=== PATIENT | male | born 1955 | race Caucasian/White ===

== ENCOUNTER 2017-08-07 19:02 | Emergency (ER) | payer MEDICARE ==
[2017-08-07] MEDS ORDERED: Ketorolac INJ* 30 MG/ML 1 ML VIAL IV PUSH ONE (20:19)
--- NOTE | 2017-08-07 20:45 | RAD ---
INDICATION: Cough COMPARISON: December 17, 2013 TECHNIQUE: An AP portable view obtained at 2030 hours is submitted. FINDINGS: Bones/Soft Tissues: There are no acute bony findings. There is prior cervical fusion Cardiomediastinal: The cardiomediastinal silhouette is normal. Lungs: There are no infiltrates. Pleura: There are no pleural effusions. Other: None IMPRESSION: NO ACTIVE DISEASE.
[2017-08-07 21:06] LABS: Hematocrit 41 % (42-52); Mean Corpuscular HGB Conc 34 g/dl (31-36); Mean Corpuscular Hemoglobin 29 pg (27-31); Mean Corpuscular Volume 86 fL (80-94); Mean Platelet Volume 8 um3 (7.4-10.4); Red Blood Count 4.82 10^6/ul (4.0-5.4); Red Cell Distribution Width 13 % (10.5-15); White Blood Count 10.9 10^3/ul (3.5-10.8)
[2017-08-07 21:23] LABS: Albumin 4.2 g/dL (3.2-5.2); BUN/Creatinine Ratio 16.5 (8-20); Calcium 9.6 mg/dL (8.6-10.3); EGFR African American 109.3 (>60); Globulin 3.5 g/dL (2-4); Total Bilirubin 0.4 mg/dL (0.2-1.0); Total Protein 7.7 g/dL (6.4-8.9)
[2017-08-07] MEDS ORDERED: Iohexol 300* (CONTRAST) 10 ML SDV IV ONE (21:36)
[2017-08-07 21:38] LABS: Potassium 4.1 mmol/L (3.5-5.0)
--- NOTE | 2017-08-07 21:55 | RAD ---
INDICATION: Sore throat with swelling. Evaluate for retropharyngeal abscess. COMPARISON: MRI cervical spine March 18, 2015 TECHNIQUE: Axial source images were acquired following the intravenous administration of 50 mL Omnipaque 300 Coronal and sagittal reconstructed images were acquired. FINDINGS: Brain and skull base: There are no CT abnormalities of the visualized brain or skull base. The mastoid air cells are well aerated. Salivary glands: The major salivary glands appear normal. Paranasal sinuses: There is opacification the right maxillary antrum and there is opacification of multiple ethmoid air cells. There is focal mucosal thickening in the floor the left maxillary antrum. The mastoids are well aerated. Nasopharynx: The nasopharynx and nasal cavity appear normal. Oropharynx: The oral, and oropharynx appear normal. Larynx: There are no laryngeal abnormalities. Thyroid: The thyroid appears normal. Lymph nodes: There is no lymphadenopathy by size criteria. Trachea/esophagus: There are no abnormalities of the trachea or visualized esophagus. The visualized lung apices are clear.. Vessels:The vessels appear normal. Bones and soft tissues: There is anterior cervical spinal fusion from C5 through C7. Other: The lung apices are clear. IMPRESSION: NO CT EVIDENCE OF RETROPHARYNGEAL ABSCESS. SINUSITIS. PRIOR CERVICAL FUSION.
[2017-08-07] MEDS ORDERED: cefTRIAXone(*) 1 GM in NS 0.9% 50 ML* 50 ML IVPB ONE (22:08)
[2017-08-07] MEDS ORDERED: Diazepam TAB(*) 5 MG PO ONE (22:11)
[2017-08-07 23:36] VITALS: BP 150/89
--- NOTE | 2017-08-08 03:42 | ED ---
Nasrin Lemus Edward, scribed for Flores Hernandez MD on 08/07/17 at 1939 . Neck Pain - HPI Summary HPI Summary: 62 y/o male presents to the ED c/o neck pain that started as neck stiffness several days ago. The pain is located at the R side of the back of his neck. Pt has difficulty swallowing with the pain. The pain is described as a tightness that is aggravated when the pt turns his head to the L; it was rated 8/10 in severity at triage. Pt's was recently sick. Associated sx: SOL, sinus congestion, burning with urination (mild). Pt states that yesterday he was looking straight ahead but felt like he was looking to the R. PMHx chronic SOL, back and neck problems, asthma, anxiety. - History of Current Complaint Chief Complaint: EDHeadache Stated Complaint: NECK PAIN/SORE THROAT Hx Obtained From: Patient Timing: Lasting Days Onset/Duration: Started days ago Severity Currently: Severe Pain Intensity: 8 Pain Scale Used: 0-10 Numeric Location: Discrete At: - back of neck on the R side Character: Other: - tightness Aggravating Factors: Movement - turning his head to the L, swallowing Alleviating Factors: Nothing Associated Signs & Symptoms: Positive: Nuchal Rigity, Headache - Allergies/Home Medications Allergies/Adverse Reactions: Allergies Allergy/AdvReac Type Severity Reaction Status Date / Time No Known Allergies Allergy Verified 08/07/17 19:18 PMH/Surg Hx/FS Hx/Imm Hx Previously Healthy: No Endocrine/Hematology History: Denies: Hx Diabetes, Hx Anemia Cardiovascular History: Reports: Hx Hypercholesterolemia Denies: Hx Hypertension, Hx Pacemaker/ICD Respiratory History: Reports: Hx Asthma - 15 yrs, Hx Pneumonia, Hx Sleep Apnea - MILD -MOD NO MACHINE GI History: Reports: Hx Gastroesophageal Reflux Disease, Hx Irritable Bowel, Hx Ulcer History: Reports: Hx Benign Prostatic Hyperplasia - seeing urologist, Other Problems/Disorders - BPH Musculoskeletal History: Reports: Hx Arthritis, Hx Back Problems - since 1979, Other Musculoskeletal History - back pain Sensory History: Reports: Hx Cataracts - SURGERY Denies: Hx Contacts or Glasses - DOESN'T WEAR, Hx Hearing Aid Opthamlomology History: Reports: Hx Cataracts - SURGERY Denies: Hx Contacts or Glasses - DOESN'T WEAR Neurological History: Reports: Hx Headaches, Hx Migraine, Hx Spinal Cord Injury Psychiatric History: Reports: Hx Anxiety, Hx Depression Denies: Hx Panic Disorder - Cancer History Cancer Type, Location and Year: Basal Cell Carcinoma on back, left arm, hands - Surgical History Surgery Procedure, Year, and Place: CSP FUSION , LSP FUSION,. CHEMOTHERAPY INJECTION . BACK SURGERY REMOVED SCAR TISSUE AND RELIEVED PRESSURE FROM SCIATICA Hx Anesthesia Reactions: No Infectious Disease History: No Infectious Disease History: Denies: Hx Clostridium Difficile, Hx Hepatitis, Hx Human Immunodeficiency Virus (HIV), Hx of Known/Suspected MRSA, Traveled Outside the [place] in Last 30 Days - Social History Alcohol Use: None Hx Substance Use: No Substance Use Type: Reports: None Substance Use Comment - Amount & Last Used: oxycodone Hx Tobacco Use: No Smoking Status (MU): Never Smoked Tobacco Review of Systems Constitutional: Negative Eyes: Negative ENT: Other - sinus congestion Positive: Sore Throat Cardiovascular: Negative Positive: Shortness Of Breath Gastrointestinal: Negative Positive: burning - mild Positive: Arthralgia - neck pain Skin: Negative Positive: Headache Psychological: Normal All Other Systems Reviewed And Are Negative: No Physical Exam - Summary Physical Exam Summary: Appearance: Alert, conversive, nontoxic appearing Skin: Warm, dry, no mottling, no rashes, no contusions HEENT: EOMI, PERRL, slightly dry mucous membranes Neck: No masses on the neck, supple Respiratory: Clear to auscultation, breath sounds present, no rales, no rhonchi , no wheezes Cardiovascular: RRR, pulses are symmetrical in both lower and upper extremities Abdomen: Soft, non-tender Bowel Sounds: Present Musculoskeletal: No CVA tenderness, no obvious deformity, moving all extremities in a grossly normal manner. The pt has paraspinal tenderness at the right. Limited ROM of the neck. Neurological: A&Ox3, CN II-XII Intact, moving all extremities symmetrically Psychiatric: The pt is slightly anxious. Triage Information Reviewed: Yes Vital Signs On Initial Exam: Initial Vitals Temp Pulse Resp BP Pulse Ox 98.8 F 105 20 156/97 99 08/07/17 19:12 08/07/17 19:12 08/07/17 19:12 08/07/17 19:12 08/07/17 19:12 Vital Signs Reviewed: Yes Diagnostics - Vital Signs Vital Signs Temp Pulse Resp BP Pulse Ox 08/07/17 19:12 98.8 F 105 20 156/97 99 - Laboratory Lab Results: Lab Results 08/07/17 08/07/17 08/07/17 Range/Units 20:40 20:40 21:11 WBC 10.9 H (3.5-10.8) 10^3/ul RBC 4.82 (4.0-5.4) 10^6/ul Hgb 14.0 (14.0-18.0) g/dl Hct 41 L (42-52) % MCV 86 (80-94) fL MCH 29 (27-31) pg MCHC 34 (31-36) g/dl RDW 13 (10.5-15) % Plt Count 237 (150-450) 10^3/ul MPV 8 (7.4-10.4) um3 Neut % (Auto) 72.9 (38-83) % Lymph % (Auto) 15.8 L (25-47) % [place] % (Auto) 10.4 H (1-9) % Eos % (Auto) 0.5 (0-6) % Baso % (Auto) 0.4 (0-2) % Absolute Neuts (auto) 8.0 H (1.5-7.7) 10^3/ul Absolute Lymphs (auto) 1.7 (1.0-4.8) 10^3/ul Absolute Monos (auto) 1.1 H (0-0.8) 10^3/ul Absolute Eos (auto) 0 (0-0.6) 10^3/ul Absolute Basos (auto) 0 (0-0.2) 10^3/ul Absolute Nucleated RBC 0 10^3/ul Nucleated RBC % 0 Sodium 134 (133-145) mmol/L Potassium 4.1 (3.5-5.0) mmol/L Chloride 99 L (101-111) mmol/L Carbon Dioxide 30 (22-32) mmol/L Anion Gap 5 (2-11) mmol/L BUN 15 (6-24) mg/dL Creatinine 0.91 (0.67-1.17) mg/dL Est GFR ( Amer) 109.3 (>60) Est GFR (Non-Af Amer) 85.0 (>60) BUN/Creatinine Ratio 16.5 (8-20) Glucose 100 (70-100) mg/dL Calcium 9.6 (8.6-10.3) mg/dL Total Bilirubin 0.40 (0.2-1.0) mg/dL AST 20 (13-39) U/L ALT 31 (7-52) U/L Alkaline Phosphatase 85 (34-104) U/L Total Protein 7.7 (6.4-8.9) g/dL Albumin 4.2 (3.2-5.2) g/dL Globulin 3.5 (2-4) g/dL Albumin/Globulin Ratio 1.2 (1-3) Group A Strep Rapid Negative (Negative) Result Diagrams: 08/07/17 20:40 08/07/17 20:40 Lab Statement: Any lab studies that have been ordered have been reviewed, and results considered in the medical decision making process. - Radiology CXR Xray Interpretation: No Acute Changes - NO ACTIVE DISEASE Radiology Interpretation Completed By: Radiologist - ED PHYSICIAN REVIEWS AND AGREES - CT NECK CT CT Interpretation: No Acute Changes - NO CT EVIDENCE OF RETROPHARYNGEAL ABSCESS. SINUSITIS. PRIOR CERVICAL FUSION. CT Interpretation Completed By: Radiologist - ED PHYSICIAN REVIEWS AND AGREES Re-Evaluation - Re-Evaluation 1 Re-Evaluation Time: 22:15 Comment: Discuss test results Neck Course/Dx - Course Assessment/Plan: 62 y/o male presents to the ED c/o neck pain that started as neck stiffness several days ago. The pain is located at the R side of the back of his neck. Pt has difficulty swallowing with the pain. The pain is described as a tightness that is aggravated by the pt turning his head to the L side; it was rated 8/10 in severity at triage. Pt's was recently sick. Associated sx : SOL, sinus congestion, burning with urination (mild). Pt states that yesterday he was looking straight ahead but felt like he was looking to the R. PMHx chronic SOL, back and neck problems, asthma, anxiety. CXR NEGATIVE. NO CT EVIDENCE OF RETROPHARYNGEAL ABSCESS. SINUSITIS. PRIOR CERVICAL FUSION. Rapid strep negative. - Diagnoses Provider Diagnoses: Torticollis, acute, Sinusitis Discharge - Discharge Plan Condition: Stable Disposition: HOME Prescriptions: Amoxicillin PO (*) [Amoxicillin 500 MG CAP*] 500 mg PO TID 10 Days #30 cap Patient Education Materials: Sinusitis (ED), Spasmodic Torticollis (ED) Referrals: Claudia Levi MD [Primary Care Provider] - Additional Instructions: Take the amoxil as instructed. Take your pain medications as previously instructed. return if worse or any new symptoms. Please follow up with your doctor in 1-2 days. The documentation as recorded by the Nasrin coley Edward accurately reflects the service I personally performed and the decisions made by , Flores Hernandez MD.
== END 2017-08-07 23:29 | disposition home or self-care (01) ==
LOC: ED 19:02
DX: J32.9 Chronic sinusitis, unspecified (principal); M43.6 Torticollis; R51 Headache; J02.9 Acute pharyngitis, unspecified
CPT/HCPCS: 36415; 70491; 71010; 80053; 85025; 87651; 96374; 99283; A9270-GY; J0696; J1885; Q9967

== ENCOUNTER → 2019-01-11 17:38 | Emergency (ER) | payer MEDICARE ==
[~2019-01-11 17:38] MED LIST: Albuterol/Ipratropium NEB.SOL* Albuterol 2.5 MG/Ipratropium 0.5 MG 3 ML INH ONE; NS 0.9% 1000 ML** 1,000 ML IV ONE
[2019-01-11 18:24] LABS: Influenza A Molecular NEGATIVE (Negative); Influenza B Molecular NEGATIVE (Negative)
[2019-01-11 20:38] LABS: ABS Basophils 0 10^3/ul (0-0.2); ABS Eosinophils 0 10^3/ul (0-0.6); ABS Lymphocytes 0.4 10^3/ul (1.0-4.8); ABS Monocytes 0.3 10^3/ul (0-0.8); ABS Neutrophils 4.2 10^3/ul (1.5-7.7); ABS Nucleated RBC 0 10^3/ul; Eosinophil % 0 %; Hematocrit 42 % (36-46); Hemoglobin 13.7 g/dL (14.0-18.0); Lymphocyte % 7.6 %; Mean Corpuscular HGB Conc 33 g/dL (31-36); Mean Corpuscular Hemoglobin 28 pg (27-31); Mean Corpuscular Volume 86 fL (80-94); Mean Platelet Volume 7.5 fL (7.4-10.4); Nucleated Red Blood Cells % 0.1; Platelet Count 168 10^3/uL (150-450); Red Blood Count 4.84 10^6 /uL (4.18-5.48); Red Cell Distribution Width 13 % (10.5-15); White Blood Count 4.9 10^3/uL (3.5-10.8)
[2019-01-11 20:54] LABS: Albumin 4.2 g/dL (3.2-5.2); Albumin/Globulin Ratio 1.4 (1-3); Calcium 9.2 mg/dL (8.6-10.3); EGFR African American 81.5 (>60); EGFR Non-African American 67.3 (>60); Globulin 2.9 g/dL (2-4); Potassium 3.8 mmol/L (3.5-5.0); Total Bilirubin 0.5 mg/dL (0.2-1.0); Total Protein 7.1 g/dL (6.4-8.9)
[2019-01-11 21:29] LABS: C Reactive Protein 69.89 mg/L (<8.01)
--- NOTE | 2019-01-11 21:36 | ED ---
HPI Febrile Illness - HPI Summary HPI Summary: This patient is a 63 year old M presenting to [facility] accompanied by his upon referral from his PCP with a chief complaint of chills since 1 day ago. The patient notes that earlier 1 day ago he had an infected tooth abscess removed by his dentist. The patient notes that he had been taking penicillin for the last 10 days. The patient rates the pain 6/10 in severity. Symptoms aggravated by nothing. Symptoms alleviated by nothing. Patient reports myalgias and fever (max 102 degrees F). Patient denies cough or dysuria. Patient has hx in degenerative disk disease and asthma. The patient notes he takes morphine and oxycodone daily that he obtains through the pain clinic. The patient notes that he had similar symptoms following his back surgery that was never diagnosed. - History of Current Complaint Chief Complaint: EDFluSymptoms Time Seen by Provider: 01/11/19 19:51 Hx Obtained From: Patient Onset/Duration: Started Days Ago - 1 day, Atraumatic, Still Present Timing: Constant Temperature: 102 F Initial Severity: Mild Current Severity: Mild Pain Intensity: 5 Pain Scale Used: 0-10 Numeric Aggravating Factors: Nothing Alleviating Factors: Nothing Associated Signs and Symptoms: Chills, Myalgia - Allergy/Home Medications Allergies/Adverse Reactions: Allergies Allergy/AdvReac Type Severity Reaction Status Date / Time No Known Allergies Allergy Verified 01/11/19 17:49 Home Medications: Home Medications Albuterol HFA INHALER* [Ventolin HFA Inhaler*] 2 puff INH Q4H PRN 01/11/19 [ History Confirmed 01/11/19] Fluticasone Propionate [24 Hour Allergy Relief] 2 spray BOTH NARES BID 01/11/19 [History Confirmed 01/11/19] Penicillin V Potassium 500 mg PO TID 01/11/19 [History Confirmed 01/11/19] Riboflavin (Vitamin B2) [Vitamin B-2] 100 mg PO QID 01/11/19 [History Confirmed 01/11/19] PMH/Surg Hx/FS Hx/Imm Hx Endocrine/Hematology History: Denies: Hx Diabetes, Hx Anemia Cardiovascular History: Reports: Hx Hypercholesterolemia Denies: Hx Hypertension, Hx Pacemaker/ICD Respiratory History: Reports: Hx Asthma - 15 yrs, Hx Pneumonia, Hx Sleep Apnea - MILD -MOD NO MACHINE GI History: Reports: Hx Gastroesophageal Reflux Disease, Hx Irritable Bowel, Hx Ulcer History: Reports: Hx Benign Prostatic Hyperplasia - seeing urologist, Other Problems/Disorders - BPH Denies: Hx Renal Disease Musculoskeletal History: Reports: Hx Arthritis, Hx Back Problems - since 1979, Other Musculoskeletal History - back pain Sensory History: Reports: Hx Cataracts - SURGERY Denies: Hx Contacts or Glasses - DOESN'T WEAR, Hx Hearing Aid Opthamlomology History: Reports: Hx Cataracts - SURGERY Denies: Hx Contacts or Glasses - DOESN'T WEAR Neurological History: Reports: Hx Headaches, Hx Migraine, Hx Spinal Cord Injury Psychiatric History: Reports: Hx Anxiety, Hx Depression Denies: Hx Panic Disorder - Cancer History Cancer Type, Location and Year: Basal Cell Carcinoma on back, left arm, hands - Surgical History Surgery Procedure, Year, and Place: CSP FUSION , LSP FUSION,. CHEMOTHERAPY INJECTION . BACK SURGERY REMOVED SCAR TISSUE AND RELIEVED PRESSURE FROM SCIATICA Hx Anesthesia Reactions: No Infectious Disease History: No Infectious Disease History: Denies: Hx Clostridium Difficile, Hx Hepatitis, Hx Human Immunodeficiency Virus (HIV), Hx of Known/Suspected MRSA, Traveled Outside the [place] in Last 30 Days - Family History Known Family History: Negative: Diabetes, Blood Disorder - Social History Alcohol Use: None Hx Substance Use: No Substance Use Type: Reports: None Substance Use Comment - Amount & Last Used: oxycodone Hx Tobacco Use: No Smoking Status (MU): Never Smoked Tobacco Review of Systems Positive: Fever, Chills Negative: Epistaxis Negative: Cough Negative: dysuria Positive: Myalgia All Other Systems Reviewed And Are Negative: Yes Physical Exam - Summary Physical Exam Summary: VITAL SIGNS: Reviewed. GENERAL: Patient is a well-developed and nourished MALE who is lying comfortable in the stretcher. Patient is not in any acute respiratory distress. HEAD AND FACE: No signs of trauma. No ecchymosis, hematomas or skull depressions. No sinus tenderness. EYES: PERRLA, EOMI x 2, No injected conjunctiva, no nystagmus. EARS: Hearing grossly intact. Ear canals and tympanic membranes are within normal limits. MOUTH: Oropharynx within normal limits. Last left lower molar removed. Socket looks good with no signs of infection, no swelling, no pain NECK: Supple, trachea is midline, no adenopathy, no JVD, no carotid bruit, no c- spine tenderness, neck with full ROM. CHEST: Symmetric, no tenderness at palpation LUNGS: Clear to auscultation bilaterally. No wheezing or crackles. CVS: Regular rate and rhythm, S1 and S2 present, no murmurs or gallops appreciated. ABDOMEN: Soft, non-tender. No signs of distention. No rebound no guarding, and no masses palpated. Bowel sounds are normal. EXTREMITIES: FROM in all major joints, no edema, no cyanosis or clubbing. NEURO: Alert and oriented x 3. No acute neurological deficits. Speech is normal and follows commands. SKIN: Dry and warm Triage Information Reviewed: Yes Vital Signs On Initial Exam: Initial Vitals Temp Pulse Resp BP Pulse Ox 98.7 F 111 16 117/81 96 01/11/19 17:39 01/11/19 17:39 01/11/19 17:39 01/11/19 17:39 01/11/19 17:39 Vital Signs Reviewed: Yes Diagnostics - Vital Signs Vital Signs Temp Pulse Resp BP Pulse Ox 01/11/19 20:03 88 112/70 97 01/11/19 20:00 89 96 01/11/19 19:49 85 115/71 97 01/11/19 19:01 98.8 F 90 16 114/69 96 01/11/19 17:39 98.7 F 111 16 117/81 96 - Laboratory Lab Results: Lab Results 01/11/19 01/11/19 01/11/19 Range/Units 18:00 20:28 20:28 WBC 4.9 (3.5-10.8) 10^3/uL RBC 4.84 (4.18-5.48) 10^6 /uL Hgb 13.7 L (14.0-18.0) g/dL Hct 42 (36-46) % MCV 86 (80-94) fL MCH 28 (27-31) pg MCHC 33 (31-36) g/dL RDW 13 (10.5-15) % Plt Count 168 (150-450) 10^3/uL MPV 7.5 (7.4-10.4) fL Neut % (Auto) 86.2 % Lymph % (Auto) 7.6 % Morton % (Auto) 6.0 % Eos % (Auto) 0 % Baso % (Auto) 0.2 % Absolute Neuts (auto) 4.2 (1.5-7.7) 10^3/ul Absolute Lymphs (auto) 0.4 L (1.0-4.8) 10^3/ul Absolute Monos (auto) 0.3 (0-0.8) 10^3/ul Absolute Eos (auto) 0 (0-0.6) 10^3/ul Absolute Basos (auto) 0 (0-0.2) 10^3/ul Absolute Nucleated RBC 0 10^3/ul Nucleated RBC % 0.1 Sodium 138 (135-145) mmol/L Potassium 3.8 (3.5-5.0) mmol/L Chloride 102 (101-111) mmol/L Carbon Dioxide 27 (22-32) mmol/L Anion Gap 9 (2-11) mmol/L BUN 20 (6-24) mg/dL Creatinine 1.11 (0.67-1.17) mg/dL Est GFR ( Amer) 81.5 (>60) Est GFR (Non-Af Amer) 67.3 (>60) BUN/Creatinine Ratio 18.0 (8-20) Glucose 140 H (70-100) mg/dL Lactic Acid (0.5-2.0) mmol/L Calcium 9.2 (8.6-10.3) mg/dL Total Bilirubin 0.50 (0.2-1.0) mg/dL AST 36 (13-39) U/L ALT 47 (7-52) U/L Alkaline Phosphatase 81 (34-104) U/L C-Reactive Protein Pending Total Protein 7.1 (6.4-8.9) g/dL Albumin 4.2 (3.2-5.2) g/dL Globulin 2.9 (2-4) g/dL Albumin/Globulin Ratio 1.4 (1-3) Influenza A (Rapid) Negative (Negative) Influenza B (Rapid) Negative (Negative) 01/11/19 Range/Units 20:28 WBC (3.5-10.8) 10^3/uL RBC (4.18-5.48) 10^6 /uL Hgb (14.0-18.0) g/dL Hct (36-46) % MCV (80-94) fL MCH (27-31) pg MCHC (31-36) g/dL RDW (10.5-15) % Plt Count (150-450) 10^3/uL MPV (7.4-10.4) fL Neut % (Auto) % Lymph % (Auto) % Morton % (Auto) % Eos % (Auto) % Baso % (Auto) % Absolute Neuts (auto) (1.5-7.7) 10^3/ul Absolute Lymphs (auto) (1.0-4.8) 10^3/ul Absolute Monos (auto) (0-0.8) 10^3/ul Absolute Eos (auto) (0-0.6) 10^3/ul Absolute Basos (auto) (0-0.2) 10^3/ul Absolute Nucleated RBC 10^3/ul Nucleated RBC % Sodium (135-145) mmol/L Potassium (3.5-5.0) mmol/L Chloride (101-111) mmol/L Carbon Dioxide (22-32) mmol/L Anion Gap (2-11) mmol/L BUN (6-24) mg/dL Creatinine (0.67-1.17) mg/dL Est GFR ( Amer) (>60) Est GFR (Non-Af Amer) (>60) BUN/Creatinine Ratio (8-20) Glucose (70-100) mg/dL Lactic Acid 2.6 H* (0.5-2.0) mmol/L Calcium (8.6-10.3) mg/dL Total Bilirubin (0.2-1.0) mg/dL AST (13-39) U/L ALT (7-52) U/L Alkaline Phosphatase (34-104) U/L C-Reactive Protein Total Protein (6.4-8.9) g/dL Albumin (3.2-5.2) g/dL Globulin (2-4) g/dL Albumin/Globulin Ratio (1-3) Influenza A (Rapid) (Negative) Influenza B (Rapid) (Negative) Result Diagrams: 01/11/19 20:28 01/11/19 20:28 Lab Statement: Any lab studies that have been ordered have been reviewed, and results considered in the medical decision making process. - Radiology CXR Radiology Interpretation Completed By: ED Physician - Dr. Reina, pending official report Summary of Radiographic Findings: negative Course/Dx - Course Course Of Treatment: This patient is a 63 year old M with hx degenerative disk disease and asthma presenting to [facility] with a chief complaint of chills, fever and myalgias since 1 day ago. The patient notes that he had been taking penicillin for the last 10 days. The patient notes he takes morphine and oxycodone daily that he obtains through the pain clinic. Pt had no previous heart surgery and no abnormal valves in heart. CXR reveals, per ED physician, negative. Labs and UA obtained. In the ED course the patient was given IV fluids and albuterol. Patient will be discharged home with and follow up from Dr. Jackson. Dx fever The patient is agreeable with this plan. - Diagnoses Provider Diagnoses: Fever Discharge - Sign-Out/Discharge Documenting (check all that apply): Patient Departure - discharge home Patient Received Moderate/Deep Sedation with Procedure: No - Discharge Plan Condition: Stable Disposition: HOME Patient Education Materials: Fever in Adults (ED) Referrals: Claudia Levi MD [Primary Care Provider] - Sebastian SANDOVAL,Atilio Medrano [Medical Doctor] - 1 Day Additional Instructions: Follow up with Dr. Jackson, hospitalist, in 1-2 days. Return to the emergency department with any new or worsening symptoms. - Attestation Statements Document Initiated by Scribe: Yes Documenting Scribe: Alicia Maloney Provider For Whom Carmita is Documenting (Include Credential): Gauri Reina MD Scribe Attestation: Alicia Lemus, scribed for Gauri Reina MD on 01/11/19 at 2230. Status of Scribe Document: Ready
[2019-01-11 21:39] LABS: Activated Partial Thrombo Time 31.9 seconds (26.0-36.3); INR 1.15 (0.77-1.02)
[2019-01-11 22:17] LABS: Urine Appearance Cloudy; Urine Bacteria Absent (Absent); Urine Bilirubin Negative (Negative); Urine Blood Negative (Negative); Urine Color Amber; Urine Glucose Negative (Negative); Urine Ketones Negative (Negative); Urine Nitrite Negative (Negative); Urine Protein 1+(30 mg/dL) (Negative); Urine Red Blood Cell Absent (Absent); Urine Specific Gravity 1.027 (1.010-1.030); Urine Urobilinogen Negative (Negative); Urine White Blood Cell Absent (Absent)
[2019-01-11 22:49] VITALS: BP 146/80
== END | disposition home or self-care (01) ==
LOC: ED 17:38
DX: R50.9 Fever, unspecified (principal); E78.00 Pure hypercholesterolemia, unspecified; J45.909 Unspecified asthma, uncomplicated; K21.9 Gastro-esophageal reflux disease without esophagitis; K58.9 Irritable bowel syndrome, unspecified; G47.30 Sleep apnea, unspecified; Z79.51 Long term (current) use of inhaled steroids; Z85.828 Personal history of other malignant neoplasm of skin
CPT/HCPCS: 36415; 71045; 80053; 81003; 81015; 83605; 85025; 85610; 85730; 86140; 87040; 96360; 99283; A9270-GY